=== PATIENT | male | born 1965 | race Caucasian/White ===

== ENCOUNTER → 2023-09-05 11:29 | Outpatient (REF) | payer BC, SELFPAY ==
[2023-09-05 12:20] LABS: LDH 181 U/L (120-246)
== END ==
LOC: REG 11:29
PROVIDERS: ATTENDING PHYSICIAN Dermatology; FAMILY PHYSICIAN Internal Medicine
DX: Z85.820 Personal history of malignant melanoma of skin (principal)
CPT/HCPCS: 36415; 83615

== ENCOUNTER 2024-01-31 13:33 | Emergency (ER) | payer OTHER, SELFPAY ==
[2024-01-31] VITALS (10 sets, daily range): BP systolic 119–147; BP diastolic 78–99
[2024-01-31 14:20] LABS: % Basophils 0.8 % (0-2); % Eosinophils 2.5 % (0-6); % Immature Granulocytes 0.3 % (0-0.5); % Lymphocytes 23.4 % (20.5-51.1); % Monocytes 14.6 % (1.7-9.3); % Neutrophils 58.4 % (42.2-75.2); Absolute Basophils 0.1 10^3/uL (0-0.2); Absolute Eosinophils 0.2 10^3/uL (0-0.7); Absolute Lymphocytes 1.7 10^3/uL (1.2-3.4); Absolute Monocytes 1.1 10^3/uL (0.1-0.6); Absolute Neutrophils 4.3 10^3/uL (1.4-6.5); Hematocrit 38.9 % (39.0-52.0); Hemoglobin 13.7 g/dL (13.0-18.0); Mean Corp Hgb Conc. 35.2 g/dL (33.0-37.0); Mean Corpuscular Hgb 31.4 pg (27.0-31.0); Mean Corpuscular Volume 89.2 fL (80.0-94.0); Mean Platelet Volume 10.1 fL (7.4-10.4); Nucleated Red Blood Cells % 0 % (-); Platelet Count 233 10^3/uL (130-400); Red Blood Cell Count 4.36 10^6/uL (4.70-6.10); Red Cell Dist. Width 12.5 % (11.5-14.5); White Blood Cell Count 7.3 10^3/uL (4.8-10.8)
--- NOTE | 2024-01-31 14:32 | ED.GENMED ---
History of Present Illness
<Tammy Hager PA-C - Last Filed: 02/01/24 18:02>
General
Chief Complaint: Chest Pain
Source: patient
Time Seen by Provider: 01/31/24 14:16
History of Present Illness
History of Present Illness:
58yoM with a history of hyperlipidemia and asthma presenting with his for evaluation of chest pain. Symptoms began around noon today when he was climbing up a hill. He reports developing and aching and pressure type discomfort in his left arm
which radiated to the left neck. This was associated with shortness of breath and lightheadedness. The episode resolved but he had a second episode of these symptoms after he returned home. He is relatively asymptomatic currently other than minor
shoulder discomfort. He denies any chest pain, diaphoresis, nausea, vomiting, syncope. He denies any history of CAD. He had a stress test 2 years ago which was reportedly normal.
Past History
<Tammy Hager PA-C - Last Filed: 02/01/24 18:02>
Past History
ED Past Medical History: Hypercholesterolemia
ED Past Surgical History: Orthopedic
Social History
Tobacco: Non-smoker
Phy Exam
<Tammy Hager PA-C - Last Filed: 02/01/24 18:02>
General Physical Exam
General Presentation: well appearing and no apparent distress
General age: appears stated age
General Skin: warm and dry
General Habitus: normal
General Mental: alert
Cardiovascular Exam
Cardiovascular Exam: regular rate/rhythm, no edema, no murmur and normal peripheral pulses (2+ radial pulses bilaterally)
Pulmonary Exam
Pulmonary Exam: lungs clear, no respiratory distress, no crackles and no wheezing
Skin Exam
Skin Exam: normal color and warm/dry
Psychiatric Exam
Psychiatric Exam: normal mood/affect
Scores
<Tammy Hager PA-C - Last Filed: 02/01/24 18:02>
Heart Score for Chest Pain Patients
Heart Score for Chest Pain Patients: 3
Heart Score Risk: 2.5% MACE over next 6 weeks
<Trevor Peterson MD - Last Filed: 01/31/24 22:34>
Heart Score for Chest Pain Patients
STEMI patient?: No
History: Moderately Suspicious
ECG: Normal
Age: >45 - <65 years
Risk Factors: 1 or 2 Risk Factors
Troponin: </= Normal Limit
Heart Score for Chest Pain Patients: 3
Heart Score Risk: 2.5% MACE over next 6 weeks
Course
<Tammy Hager PA-C - Last Filed: 02/01/24 18:02>
Orders/Labs/Results
Orders:
Orders
01/31/24 13:35
ECG [Electrocardiogram (*1)] Urgent
Reason for Study: Chest Pain
EKG- Treatment ONCE
01/31/24 14:07
Complete Blood Count/With Diff Urgent
Comprehensive Metabolic Panel Urgent
Troponin I Urgent
01/31/24 14:33
Cardiac Monitoring- Treatment ONCE
CR Chest - 2 Views Urgent
Comment:
Reason For Exam: CP
01/31/24 15:16
EKG- Treatment ONCE
01/31/24 16:57
Troponin I Urgent
01/31/24 17:00
Electrocardiogram (*1) Urgent
Reason for Study: Chest Pain
Abnormal Lab Results
01/31/24
14:07
RBC 4.36 L 10^6/uL
(4.70-6.10)
Hct 38.9 L %
(39.0-52.0)
MCH 31.4 H pg
(27.0-31.0)
Absolute Monos (auto) 1.1 H 10^3/uL
(0.1-0.6)
Monocytes % 14.6 H %
(1.7-9.3)
01/31/24 14:07
01/31/24 14:07
Vital Signs
Initial and Last Documented VS:
Initial Vital Signs
Temp Pulse Resp BP Pulse Ox
98.6 F 86 18 147/88 97
01/31/24 13:43 01/31/24 13:43 01/31/24 13:43 01/31/24 13:43 01/31/24 13:43
Last Documented Vital Signs
Temp Pulse Resp BP Pulse Ox
98.6 F 77 18 127/96 99
01/31/24 13:43 01/31/24 18:43 01/31/24 18:43 01/31/24 18:43 01/31/24 18:43
<Leticia Martinez MD - Last Filed: 01/31/24 15:26>
Orders/Labs/Results
Orders:
Orders
01/31/24 13:35
ECG [Electrocardiogram (*1)] Urgent
Reason for Study: Chest Pain
EKG- Treatment ONCE
01/31/24 14:07
Complete Blood Count/With Diff Urgent
Comprehensive Metabolic Panel Urgent
Troponin I Urgent
01/31/24 14:33
Cardiac Monitoring- Treatment ONCE
CR Chest - 2 Views Urgent
Comment:
Reason For Exam: CP
01/31/24 15:16
EKG- Treatment ONCE
01/31/24 16:57
Troponin I Urgent
01/31/24 17:00
Electrocardiogram (*1) Urgent
Reason for Study: Chest Pain
Abnormal Lab Results
01/31/24
14:07
RBC 4.36 L 10^6/uL
(4.70-6.10)
Hct 38.9 L %
(39.0-52.0)
MCH 31.4 H pg
(27.0-31.0)
Absolute Monos (auto) 1.1 H 10^3/uL
(0.1-0.6)
Monocytes % 14.6 H %
(1.7-9.3)
01/31/24 14:07
01/31/24 14:07
Vital Signs
Initial and Last Documented VS:
Initial Vital Signs
Temp Pulse Resp BP Pulse Ox
98.6 F 86 18 147/88 97
01/31/24 13:43 01/31/24 13:43 01/31/24 13:43 01/31/24 13:43 01/31/24 13:43
Last Documented Vital Signs
Temp Pulse Resp BP Pulse Ox
98.6 F 77 18 127/96 99
01/31/24 13:43 01/31/24 18:43 01/31/24 18:43 01/31/24 18:43 01/31/24 18:43
<Trevor Peterson MD - Last Filed: 01/31/24 22:34>
Orders/Labs/Results
Orders:
Orders
01/31/24 13:35
ECG [Electrocardiogram (*1)] Urgent
Reason for Study: Chest Pain
EKG- Treatment ONCE
01/31/24 14:07
Complete Blood Count/With Diff Urgent
Comprehensive Metabolic Panel Urgent
Troponin I Urgent
01/31/24 14:33
Cardiac Monitoring- Treatment ONCE
CR Chest - 2 Views Urgent
Comment:
Reason For Exam: CP
01/31/24 15:16
EKG- Treatment ONCE
01/31/24 16:57
Troponin I Urgent
01/31/24 17:00
Electrocardiogram (*1) Urgent
Reason for Study: Chest Pain
Abnormal Lab Results
01/31/24
14:07
RBC 4.36 L 10^6/uL
(4.70-6.10)
Hct 38.9 L %
(39.0-52.0)
MCH 31.4 H pg
(27.0-31.0)
Absolute Monos (auto) 1.1 H 10^3/uL
(0.1-0.6)
Monocytes % 14.6 H %
(1.7-9.3)
01/31/24 14:07
01/31/24 14:07
Vital Signs
Initial and Last Documented VS:
Initial Vital Signs
Temp Pulse Resp BP Pulse Ox
98.6 F 86 18 147/88 97
01/31/24 13:43 01/31/24 13:43 01/31/24 13:43 01/31/24 13:43 01/31/24 13:43
Last Documented Vital Signs
Temp Pulse Resp BP Pulse Ox
98.6 F 77 18 127/96 99
01/31/24 13:43 01/31/24 18:43 01/31/24 18:43 01/31/24 18:43 01/31/24 18:43
<Tammy Hager PA-C - Last Filed: 02/01/24 18:02>
MDM/Problems Addressed
Differential Diagnosis Includes:
58yoM here with L arm discomfort that started after climbing up a hill. Currently resolved. Hx of HLD. No diaphoresis or syncope. He is afebrile and hemodynamically stable. He is well appearing in no distress. Exam is reassuring. Differential
diagnosis includes but is not limited to: ACS, angina, arrhythmia
Initial ED plan: Place on telemetry monitor. Check cardiac labs, EKG, and CXR.
<Tammy Hager PA-C - Last Filed: 02/01/24 18:02>
*EKG
Interpreted by ED Provider?: Yes
EKG Intrepretation Date: 01/31/24
Heart Rate: 87
Rate: normal
Rhythm: sinus
[place]: normal axis
Interval: normal interval
QRS Pattern: normal QRS
Ischemia: no ischemia
<Trevor Peterson MD - Last Filed: 01/31/24 22:34>
*Critical Care Note
Total Time (30-74mins, 75-104mins- exclusive of procedures): Not Applicable
<Tammy Hager PA-C - Last Filed: 02/01/24 18:02>
Update Note
Update Note:
Labs unremarkable. EKG shows NSR without ischemic changes and troponin is <0.012. CXR is clear. Patient is asymptomatic on reassessment and symptoms have completely resolved. Patient signed out to Adolfo Martinez PA-C prior to repeat troponin/EKG.
Repeat trop/EKG normal, and patient remains asymptomatic during observation in ED. discussed treatment options with patient, including observation overnight including cardiology consultation and stress echo. However, given that his symptoms were
very transient, each episode lasting less than 1 minute, patient feels comfortable going home at this time. Patient will contact cardiology upon going home for expedited outpatient evaluation. Patient will return to ED with recurrent chest pain.
Otherwise, patient is afebrile, hemodynamically stable, and is without any distress, at time of discharge to the care of his spouse.
<Trevor Peterson MD - Last Filed: 01/31/24 22:34>
Update Note
Update Note:
Labs unremarkable. EKG shows NSR without ischemic changes and troponin is <0.012. CXR is clear. Patient is asymptomatic on reassessment and symptoms have completely resolved.
Repeat trop/EKG normal, and patient remains asymptomatic during observation in ED. discussed treatment options with patient, including observation overnight including cardiology consultation and stress echo. However, given that his symptoms were
very transient, each episode lasting less than 1 minute, patient feels comfortable going home at this time. Patient will contact cardiology upon going home for expedited outpatient evaluation. Patient will return to ED with recurrent chest pain.
Otherwise, patient is afebrile, hemodynamically stable, and is without any distress, at time of discharge to the care of his spouse.
ED Attending Note
<Tammy Hager PA-C - Last Filed: 02/01/24 18:02>
-
Portions of this chart may have been created with voice recognition software.� Occasional wrong word or��sound alike� substitutions may have occurred due to the inherent limitations of voice recognition software.
<Leticia Martinez MD - Last Filed: 01/31/24 15:26>
ED Attending Note
Patient seen and examined by attending physician: Yes
I performed the substantive portion of visit, reviewed & personally made and approve the management plan that is documented in note by myself or PADMA.: Yes
ED Attending Note:
Patient personally evaluated by me. Looks well and comfortable. Is breathing comfortably. His chest pain-free. EKG does not show acute ischemia. Awaiting second troponin. Will reach out to do a [facility] to let them know that
the patient was here.
Discharge Plan
Departure
Patient Disposition: Home (Routine Discharge)
Date of Disposition: 01/31/24
Time of Disposition: 18:39
Patient with high blood pressure during this ER visit?: Yes
Discharge Problem:
Left shoulder pain
Instructions: Chest Pain [facility] Follow Up
Referrals:
Lars Sheridan MD [Family Provider] -
Bia Mario MD [Active] -
Activity Restrictions/Additional Instructions:
Please call on Sunday to schedule a follow-up with cardiology. Return to the ER immediately with any new or worsening symptoms.
Interventions
Interventions:
*Risk Screen - Suicide Last Done: 01/31/24 13:44
*General Assessment Last Done: 01/31/24 13:44
*Neglect/Abuse Screening Last Done: 01/31/24 13:44
ED- Fall Risk Assessment Last Done: 01/31/24 18:45
*ED COVID-19 Vaccine History Last Done: 01/31/24 14:13
*Nursing Disposition Last Done: 01/31/24 18:45
ED- Cardiac Assessment Last Done: 01/31/24 14:02
Discharge Date and Time
Discharge Date/Time: 01/31/24 18:45
Print Language: MALIAN
[2024-01-31 14:36] LABS: ALT (SGPT) 35 U/L (0-50); AST (SGOT) 31 U/L (17-59); Albumin 4.7 g/dl (3.5-5.0); Alkaline Phosphatase 71 U/L (38-126); Blood Urea Nitrogen 19 mg/dl (9-20); Calcium 9.6 mg/dl (8.4-10.2); Carbon Dioxide 25 mmol/L (22-30); Chloride 104 mmol/L (98-107); Glucose 90 mg/dl (70-99); Potassium 4.1 mmol/L (3.5-5.1); Sodium 137 mmol/L (135-145); Total Bilirubin 0.9 mg/dl (0.2-1.3); Total Protein 7.2 g/dl (6.3-8.2); eGFR > 60.00
[2024-01-31 14:46] LABS: Troponin I < 0.012 ng/ml
[2024-01-31 17:38] LABS: Troponin I < 0.012 ng/ml
== END 2024-01-31 18:45 | disposition home or self-care (01) ==
LOC: EMR 13:33
PROVIDERS: Physician Assistant; EMERGENCY PHYSICIAN Emergency Medicine; FAMILY PHYSICIAN Internal Medicine
DX: R07.9 Chest pain, unspecified (principal); M25.512 Pain in left shoulder; R42 Dizziness and giddiness; R06.02 Shortness of breath; M54.2 Cervicalgia; R03.0 Elevated blood-pressure reading, without diagnosis of hypertension; E78.00 Pure hypercholesterolemia, unspecified; J45.909 Unspecified asthma, uncomplicated
CPT/HCPCS: 99284; 71046; 80053; 84484; 85025; 93005

== ENCOUNTER → 2024-06-20 10:07 | Outpatient (REF) | payer OTHER, SELFPAY ==
[2024-06-20 11:40] LABS: % Basophils 0.5 % (0-2); % Eosinophils 2.7 % (0-6); % Immature Granulocytes 0.1 % (0-0.5); % Lymphocytes 19.3 % (20.5-51.1); % Monocytes 9.9 % (1.7-9.3); % Neutrophils 67.5 % (42.2-75.2); Absolute Eosinophils 0.2 10^3/uL (0-0.7); Absolute Lymphocytes 1.4 10^3/uL (1.2-3.4); Absolute Monocytes 0.7 10^3/uL (0.1-0.6); Hematocrit 42.1 % (39.0-52.0); Hemoglobin 14.6 g/dL (13.0-18.0); Mean Corp Hgb Conc. 34.7 g/dL (33.0-37.0); Mean Corpuscular Hgb 32.7 pg (27.0-31.0); Mean Corpuscular Volume 94.4 fL (80.0-94.0); Mean Platelet Volume 10.1 fL (7.4-10.4); Nucleated Red Blood Cells % 0 % (-); Platelet Count 217 10^3/uL (130-400); Red Blood Cell Count 4.46 10^6/uL (4.70-6.10); Red Cell Dist. Width 13.1 % (11.5-14.5); White Blood Cell Count 7.4 10^3/uL (4.8-10.8)
[2024-06-20 12:38] LABS: ALT (SGPT) 49 U/L (0-50); AST (SGOT) 33 U/L (17-59); Albumin 4.8 g/dl (3.5-5.0); Alkaline Phosphatase 62 U/L (38-126); Blood Urea Nitrogen 12 mg/dl (9-20); Calcium 9.6 mg/dl (8.4-10.2); Carbon Dioxide 29 mmol/L (22-30); Chloride 104 mmol/L (98-107); Glucose 86 mg/dl (70-99); Glycohemoglobin (HgbA1c) 5.7 % (4.0-5.6); HDL Cholesterol 52 mg/dl; LDL Cholesterol, Calculated 38 mg/dl; Potassium 4.4 mmol/L (3.5-5.1); Sodium 144 mmol/L (135-145); Total Bilirubin 0.7 mg/dl (0.2-1.3); Total Cholesterol 123 mg/dl (50-199); Total Protein 7.7 g/dl (6.3-8.2); Triglyceride 166 mg/dl (10-149); Very Low Density Lipoprotein 33 mg/dl (0-30); eGFR > 60.00
[2024-06-20 12:53] LABS: Vitamin D, 25-OH*** 71.2 ng/mL (30-80)
[2024-06-20 13:07] LABS: PSA, Total - Screen 3.74 ng/ml (0.0-4.0)
[2024-06-20 13:25] LABS: Hepatitis C Antibody Negative (Negative)
[2024-06-21 22:13] LABS: Aspergillus fumigatus 1.29 kU/L (<=0.34); Bermuda Grass 0.19 kU/L (<=0.34); Birch Tree 0.14 kU/L (<=0.34); Box Elder/Maple Tree 0.16 kU/L (<=0.34); Cat Epithelium/Dander <0.10 kU/L (<=0.34); Common/Short Ragweed 0.46 kU/L (<=0.34); Cottonwood Tree 0.19 kU/L (<=0.34); Dermatophagoides pteronyssinus 1.34 kU/L (<=0.34); Dog Dander <0.10 kU/L (<=0.34); German Cockroach 0.11 kU/L (<=0.34); IgE 84 kU/L (<=214); Mountain Cedar Tree 0.17 kU/L (<=0.34); Mouse Epithelium <0.10 kU/L (<=0.34); Mucor racemosus 0.11 kU/L (<=0.34); Mugwort Weed 0.18 kU/L (<=0.34); Oak Tree 0.19 kU/L (<=0.34); Penicillium notatum 0.46 kU/L (<=0.34); Sheep Sorrel Weed 0.18 kU/L (<=0.34); Sycamore Tree 0.38 kU/L (<=0.34); Timothy Grass 0.48 kU/L (<=0.34); Walnut Tree 0.32 kU/L (<=0.34); White Ash Tree 0.81 kU/L (<=0.34); White Mulberry Tree <0.10 kU/L (<=0.34)
[2024-06-22 08:22] LABS: HBV Quant by NAAT IU/mL Not Detected; HBV Quant by NAAT Interp Not Detected (Not Detected); HBV Quant by NAAT Log IU/mL Not Detected log IU/mL
== END ==
LOC: REG 10:07
PROVIDERS: ATTENDING PHYSICIAN Internal Medicine; FAMILY PHYSICIAN Internal Medicine Critical Care Medicine
DX: J45.40 Moderate persistent asthma, uncomplicated (principal); J30.2 Other seasonal allergic rhinitis; R97.20 Elevated prostate specific antigen [PSA]; R73.9 Hyperglycemia, unspecified; E55.9 Vitamin D deficiency, unspecified; R53.81 Other malaise; R53.83 Other fatigue; I10 Essential (primary) hypertension; E78.5 Hyperlipidemia, unspecified; Z11.59 Encounter for screening for other viral diseases
CPT/HCPCS: 36415; 80053; 80061; 82306; 82785; 83036; 84443; 85025; 86003; 86331; 86606; 86803; 87517; G0103

== ENCOUNTER → 2024-09-05 07:32 | Outpatient (REF) | payer OTHER, SELFPAY | LOC: REG 07:32 | PROVIDERS: ATTENDING PHYSICIAN Internal Medicine | DX: R97.20 Elevated prostate specific antigen [PSA] (principal) | CPT/HCPCS: 36415; G0103 ==

== ENCOUNTER → 2024-11-12 07:28 | Outpatient (REF) | payer OTHER, SELFPAY ==
[2024-11-12 08:00] LABS: % Basophils 0.5 % (0-2); % Eosinophils 2.9 % (0-6); % Immature Granulocytes 0.2 % (0-0.5); % Lymphocytes 18.1 % (20.5-51.1); % Monocytes 12.7 % (1.7-9.3); % Neutrophils 65.6 % (42.2-75.2); Absolute Eosinophils 0.2 10^3/uL (0-0.7); Absolute Lymphocytes 1.1 10^3/uL (1.2-3.4); Absolute Monocytes 0.8 10^3/uL (0.1-0.6); Absolute Neutrophils 4.2 10^3/uL (1.4-6.5); Hematocrit 40.6 % (39.0-52.0); Hemoglobin 13.9 g/dL (13.0-18.0); Mean Corp Hgb Conc. 34.2 g/dL (33.0-37.0); Mean Corpuscular Hgb 31.7 pg (27.0-31.0); Mean Corpuscular Volume 92.5 fL (80.0-94.0); Nucleated Red Blood Cells % 0 % (-); Platelet Count 231 10^3/uL (130-400); Red Blood Cell Count 4.39 10^6/uL (4.70-6.10); Red Cell Dist. Width 13.1 % (11.5-14.5); White Blood Cell Count 6.3 10^3/uL (4.8-10.8)
[2024-11-12 08:36] LABS: ALT (SGPT) 37 U/L (0-50); AST (SGOT) 30 U/L (17-59); Albumin 4.3 g/dl (3.5-5.0); Alkaline Phosphatase 50 U/L (38-126); Blood Urea Nitrogen 19 mg/dl (9-20); Calcium 9.5 mg/dl (8.4-10.2); Carbon Dioxide 25 mmol/L (22-30); Chloride 106 mmol/L (98-107); Creatine Phosphokinase 54 U/L (55-170); Glucose 100 mg/dl (70-99); HDL Cholesterol 44 mg/dl; LDL Cholesterol, Calculated 51 mg/dl; Potassium 4.5 mmol/L (3.5-5.1); Sodium 140 mmol/L (135-145); Total Bilirubin 0.9 mg/dl (0.2-1.3); Total Cholesterol 116 mg/dl (50-199); Total Protein 6.9 g/dl (6.3-8.2); Triglyceride 106 mg/dl (10-149); Very Low Density Lipoprotein 21 mg/dl (0-30); eGFR > 60.00
[2024-11-12 08:37] LABS: LDH 188 U/L (120-246)
[2024-11-12 08:55] LABS: Glycohemoglobin (HgbA1c) 5.3 % (4.0-5.6)
[2024-11-12 08:56] LABS: Vitamin D, 25-OH*** 73.7 ng/mL (30-80)
[2024-11-12 09:09] LABS: PSA, Total - Diagnostic 1.62 ng/ml (0.0-4.0)
[2024-11-13 18:54] LABS: Hepatitis B Surface Antigen Negative (Negative)
[2024-11-13 19:13] LABS: Hepatitis B Core Ab, Total Negative (Negative); Hepatitis B Surface Antibody Positive; Hepatitis C Antibody Negative (Negative)
== END ==
LOC: RAD 07:28
PROVIDERS: ATTENDING PHYSICIAN Dermatology; FAMILY PHYSICIAN Internal Medicine; REFERRING PHYSICIAN Physician Assistant Surgical
DX: S46.012A Strain of muscle(s) and tendon(s) of the rotator cuff of left shoulder, initial encounter (principal); R97.20 Elevated prostate specific antigen [PSA]; R73.9 Hyperglycemia, unspecified; E55.9 Vitamin D deficiency, unspecified; R53.81 Other malaise; R53.83 Other fatigue; I10 Essential (primary) hypertension; E78.5 Hyperlipidemia, unspecified; Z11.59 Encounter for screening for other viral diseases; Z85.820 Personal history of malignant melanoma of skin
CPT/HCPCS: 36415; 71046; 80053; 80061; 82306; 82550; 83036; 83615; 84153; 84443; 85025; 86704; 86706; 86803; 87340

== ENCOUNTER → 2025-05-19 06:44 | Outpatient (REF) | payer OTHER, SELFPAY ==
[2025-05-19 07:38] LABS: Hematocrit 42.3 % (39.0-52.0); Hemoglobin 14.1 g/dL (13.0-18.0); Mean Corp Hgb Conc. 33.3 g/dL (33.0-37.0); Mean Corpuscular Volume 94.2 fL (80.0-94.0); Nucleated Red Blood Cells % 0 % (-); Platelet Count 239 10^3/uL (130-400); Red Cell Dist. Width 13.8 % (11.5-14.5)
[2025-05-19 07:59] LABS: ALT (SGPT) 33 U/L (0-50); AST (SGOT) 27 U/L (17-59); Albumin 4.6 g/dl (3.5-5.0); Alkaline Phosphatase 50 U/L (38-126); Blood Urea Nitrogen 16 mg/dl (9-20); Calcium 9.8 mg/dl (8.4-10.2); Carbon Dioxide 29 mmol/L (22-30); Chloride 103 mmol/L (98-107); Glucose 92 mg/dl (70-99); HDL Cholesterol 48 mg/dl; LDL Cholesterol, Calculated 50 mg/dl; Potassium 4.2 mmol/L (3.5-5.1); Sodium 138 mmol/L (135-145); Total Protein 7.5 g/dl (6.3-8.2); Very Low Density Lipoprotein 31 mg/dl (0-30); eGFR > 60.00
[2025-05-19 08:16] LABS: Vitamin D, 25-OH*** 91.0 ng/mL (30-80)
[2025-05-19 08:30] LABS: PSA, Total - Screen 1.70 ng/ml (0.0-4.0); TSH 1.01 uIU/ml (0.47-4.68)
[2025-05-19 08:51] LABS: Glycohemoglobin (HgbA1c) 5.9 % (4.0-5.9)
[2025-05-19 09:02] LABS: Cortisol, Random 7.1 ug/dl
== END ==
LOC: REG 06:44
PROVIDERS: ATTENDING PHYSICIAN Internal Medicine; REFERRING PHYSICIAN Orthopaedic Surgery Orthopaedic Surgery of the Spine
DX: Z12.5 Encounter for screening for malignant neoplasm of prostate (principal); E78.5 Hyperlipidemia, unspecified; R73.9 Hyperglycemia, unspecified; E55.9 Vitamin D deficiency, unspecified; R53.81 Other malaise; R53.83 Other fatigue; E29.1 Testicular hypofunction
CPT/HCPCS: 36415; 80053; 80061; 82306; 82533; 83036; 84403; 84443; 85025; G0103